=== PATIENT | female | born 1960 | race Two or more races ===

== ENCOUNTER 2019-04-29 06:15 | Day surgery (SDC) | payer MEDICAID ==
[2019-04-24 12:02] LABS: Basophils # (auto) 0 uL; Basophils % (auto) 0.8 % (0.0-2.0); Eosinophils # (auto) 0.1 uL; Eosinophils % (auto) 2.1 % (0.0-7.0); Hemoglobin 15.7 g/dL (12.2-16.2); Lymphocytes # (auto) 2.2 uL; Lymphocytes % (auto) 44.1 % (10.0-50.0); Mean Corpuscular Hemoglobin 32.5 pg (28.0-32.0); Mean Corpuscular Hgb Conc. 34.2 g/dL (32.0-36.0); Mean Corpuscular Volume 95.1 fL (80.0-100.0); Monocytes # (auto) 0.5 uL; Monocytes % (auto) 9.2 % (0.0-12.0); Neutrophils # (auto) 2.2 uL; Neutrophils % (auto) 43.8 % (37.0-80.0); Nucleated Red Blood Cells % 0.1 %; Platelet Count (auto) 178 10^3/uL (140-450); Red Blood Cells 4.84 10^6/uL (4.0-5.20); Red Cell Distribution Width 13.1 % (11.8-14.3)
[2019-04-24 12:07] LABS: Urine Bacteria FEW /hpf (None Seen); Urine Blood Negative /uL (Negative); Urine Specific Gravity 1.018 (1.001-1.035); Urine WBC 1 /hpf (0 - 5)
[2019-04-24 12:15] LABS: INR 0.9 (0.9-1.15); Partial Thromboplastin Time 23.6 sec (23.64-32.05)
[2019-04-24 12:37] LABS: Albumin 3.6 g/dL (3.4-5.0); Calcium 9.3 mg/dL (8.5-10.1); Potassium 4.7 mmol/L (3.5-5.1)
[2019-04-24 12:42] LABS: BUN/Creatinine Ratio 13.5; Bilirubin, Total 0.6 mg/dL (0.2-1.0); Total Protein 7.5 g/dL (6.4-8.2)
[~2019-04-29] VITALS: Ht 167.6 cm; Wt 113.4 kg
[~2019-04-29 06:15] MED LIST: ALEN1TAB32 PO; BLAC540C3 PO; CHOL1CAP PO; ENAL10TA2 PO; GABA100C9 PO; GLIP5TAB12 PO; LIDO5DIS21 TOP; METF-372 PO; SIMV-8 PO; TURM500C3 OR
[2019-04-29] MEDS ORDERED: SUCCINYLCHOLINE CHLORIDE 20 MG/ML 10ML VIAL IV ONE (06:52)
[2019-04-29] MEDS ORDERED: MIDAZOLAM HCL 1MG/1ML-2 ML VIAL ONE (07:01)
[2019-04-29] MEDS ORDERED: ONDANSETRON HCL 4 MG/2 ML VIAL ONE (07:01)
[2019-04-29] MEDS ORDERED: fentaNYL CITRATE 100 MCG/2 ML VL ONE (07:01)
[2019-04-29] MEDS ORDERED: SODIUM CHLORIDE LOCK 10 ML ONE (07:01)
[2019-04-29] MEDS ORDERED: PROPOFOL 10 MG/ML 20 ML IV ONE ×2 (07:01→08:03)
[2019-04-29] MEDS ORDERED: ceFAZolin 1GM/50ML 50 ML IV ONE (07:15)
[2019-04-29] MEDS ORDERED: CHLORHEXIDINE 4% TOPICAL soln 118ml TOP ONE (07:20)
[2019-04-29] MEDS ORDERED: METOCLOPRAMIDE HCL 5MG/ml INJ 2ml VIAL IV ONE (07:30)
[2019-04-29] MEDS ORDERED: KETOROLAC TROMETH 30 MG/ML 1ML VIAL IV ONE (07:30)
[2019-04-29] MEDS ORDERED: ACCU-CHEK COMFORT CURVE STRIP VI ONE (07:30)
[2019-04-29] MEDS ORDERED: HYDROmorphone HCL 2 MG/ML VL IV PRN (07:30)
[2019-04-29 08:52] VITALS: BP 119/63
== END 2019-04-29 09:00 | disposition home or self-care (01) ==
LOC: SUR 06:15
PROVIDERS: ATTEND Podiatrist Foot & Ankle Surgery
DX: M20.11 Hallux valgus (acquired), right foot (principal); I10 Essential (primary) hypertension; E11.40 Type 2 diabetes mellitus with diabetic neuropathy, unspecified; E78.00 Pure hypercholesterolemia, unspecified; E66.9 Obesity, unspecified; Z68.41 Body mass index [BMI] 40.0-44.9, adult; Z79.84 Long term (current) use of oral hypoglycemic drugs; Z79.899 Other long term (current) drug therapy; Z98.890 Other specified postprocedural states; Z87.891 Personal history of nicotine dependence
CPT/HCPCS: 28296; 36415; 73620; 80053; 81001; 82962; 85025; 85610; 85730; C1769; J0330; J0690; J2250; J2405; J2704; J3010